=== PATIENT | female | born 2000 | race African-American/Black ===

== ENCOUNTER 2023-06-22 21:06 | Emergency (ER) | payer SELFPAY ==
[~2023-06-22] VITALS: Ht 175.3 cm; Wt 100.0 kg
[2023-06-22 21:28] VITALS: BP 139/93; PULSE 101; RESP 16; TEMP 98.9; O2SAT 100
== END 2023-06-22 23:02 | disposition home or self-care (01) ==
LOC: ER 22:33
DX: F29 Unspecified psychosis not due to a substance or known physiological condition (principal); F20.9 Schizophrenia, unspecified
CPT/HCPCS: 99283